=== PATIENT | female | born 2000 | race Two or more races ===

== ENCOUNTER 2023-01-19 06:00 | Day surgery (SDC) | payer OTHER ==
[~2023-01-19] VITALS: Ht 167.6 cm; Wt 90.7 kg
== END 2023-01-19 13:00 | disposition home or self-care (01) ==
LOC: CIR.AMB 06:00
PROVIDERS: ATTEND Surgery
DX: R22.41 Localized swelling, mass and lump, right lower limb (principal); L72.8 Other follicular cysts of the skin and subcutaneous tissue; Z20.822 Contact with and (suspected) exposure to COVID-19